=== PATIENT | male | born 1955 | race Caucasian/White ===

== ENCOUNTER → 2024-02-05 | Outpatient (CLI) | payer MEDICARE ==
[2024-02-05 10:45] LABS: African American GFR (CKD) >90 (>60 ml/min/1.73 sqM); Blood Urea Nitrogen 17 mg/dL (9-20); Non-African American GFR(CKD) >90 (>60 ml/min/1.73 sqM)
--- NOTE | 2024-02-05 11:13 | CT ---
EXAMINATION TYPE: CT abdomen pelvis w con CT DLP: 1192.20 mGycm, Automated exposure control for dose reduction was used. DATE OF EXAM: 02/05/2024 11:05 AM COMPARISON: None CLINICAL INDICATION:Male, 69 years old with history of C61 prostate ca; prostate cancer recently diag nosed TECHNIQUE: Axial CT abdomen pelvis w con;Sagittal and coronal reformats were created on a separate w orkstation. Contrast used:100 mL of Isovue 300 with IV Contrast, (none if empty) Oral contrast used: without Oral Contrast (none if empty) FINDINGS: LOWER CHEST: Unremarkable ABDOMEN LIVER: Diffusely hypoattenuating parenchyma. Couple areas of arterial phase enhancement series 4 imag e 22 and on the periphery MR wedge-shaped series 4 image 24. Simple appearing cyst in the left hepati c lobe near the dome. GALLBLADDER AND BILE DUCTS: Unremarkable. PANCREAS: Unremarkable. SPLEEN: Unremarkable. ADRENAL GLANDS: Unremarkable. KIDNEYS AND URETERS: No evidence of hydronephrosis or renal calculus. The ureters are unremarkable. Left renal exophytic simple appearing cyst. PELVIS BLADDER: Unremarkable REPRODUCTIVE: Prostate is enlarged in size measuring 4.6 cm in transverse dimension. ABDOMEN & PELVIS STOMACH AND BOWEL: No evidence of bowel obstruction. PERITONEUM/RETROPERITONEUM: No evidence of pneumoperitoneum or free fluid. VASCULATURE: No evidence of aortic aneurysm. MUSCULOSKELETAL: No acute osseous abnormalities. No greater than 1.0 cm in short axis lymph nodes. LYMPH NODES: No gross evidence for lymphadenopathy. SOFT TISSUE/ABDOMINAL WALL: Bilateral fat-containing inguinal hernias. IMPRESSION: 1. Prostatomegaly. No definitive suspicious lesions. There are no greater than 1.0 cm short axis lym ph nodes identified. Smaller metastatic disease is not excluded. Consider gallium-68 pet/CT [facility] for further evaluation for metastatic disease. 2. 2 hepatic arterial phase enhancing lesions which are indeterminate. Consider further evaluation w ith MRI liver mass protocol with IV contrast.
== END | disposition home or self-care (01) ==
LOC: RADCTMAIN 09:59
PROVIDERS: ATTEND Urology
DX: C61 Malignant neoplasm of prostate (principal); N40.0 Benign prostatic hyperplasia without lower urinary tract symptoms; K76.9 Liver disease, unspecified
CPT/HCPCS: 82565; 84520; 74177; 36415; Q9967

== ENCOUNTER → 2024-02-17 | Outpatient (CLI) | payer MEDICARE ==
--- NOTE | 2024-02-17 15:25 | NM ---
EXAMINATION TYPE: NM bone scan whole body DATE OF EXAM: 02/17/2024 1:47 PM CLINICAL INDICATION:Male, 69 years old with history of C61 MALIGNANT NEOPLASM OF PROSTATE; COMPARISON: 02/05/2024 TECHNIQUE: Intravenous administration 23.2 mCi Tc 99m MDP followed by multiple scintigraphic images o f the appendicular and axial skeleton. Additionally, small field of view planar anterior and posterio r images of the lumbosacral spine and pelvis. Images acquired 5.5 hours post injection. FINDINGS: No abnormal uptake is identified within the appendicular or axial skeleton to suggest metastatic dise ase. There is increased uptake within the bilateral shoulder, sternoclavicular, and sacroiliac joints con sistent with degenerative changes. No other photopenic areas or areas of increased activity are ident ified. Focus of uptake within the C3-C4 area in the spine Physiologic radiotracer activity is demonstrated in the kidneys and bladder. IMPRESSION: Single focus of uptake within the left neck near C3-C4 felt to be on a degenerative basis. Consider c orrelation with CT neck imaging. No other evidence of metastatic disease.
== END | disposition home or self-care (01) ==
LOC: RADNMMAIN 07:23
PROVIDERS: ATTEND Urology
DX: C61 Malignant neoplasm of prostate (principal)
CPT/HCPCS: 78306; A9503